=== PATIENT | male | born 1955 | race Caucasian/White ===

== ENCOUNTER 2025-07-19 22:52 | Inpatient (IN) | payer BC, SELFPAY ==
[2025-07-19 16:29] VITALS: BP 115/78
[2025-07-19 16:59] LABS: Hematocrit 41.9 % (39.0-52.0); Hemoglobin 14.5 g/dL (13.0-18.0); Mean Corp Hgb Conc. 34.6 g/dL (33.0-37.0); Mean Corpuscular Volume 85.7 fL (80.0-94.0); Nucleated Red Blood Cells % 0 % (-); Platelet Count 185 10^3/uL (130-400); Red Cell Dist. Width 13.7 % (11.5-14.5)
[2025-07-19 17:19] LABS: ALT (SGPT) 24 U/L (0-50); AST (SGOT) 31 U/L (17-59); Albumin 3.8 g/dl (3.5-5.0); Alkaline Phosphatase 71 U/L (38-126); Blood Urea Nitrogen 21 mg/dl (9-20); Calcium 8.5 mg/dl (8.4-10.2); Carbon Dioxide 20 mmol/L (22-30); Chloride 100 mmol/L (98-107); Glucose 105 mg/dl (70-99); Potassium 4.0 mmol/L (3.5-5.1); Sodium 128 mmol/L (135-145); Total Protein 7.1 g/dl (6.3-8.2); eGFR > 60.00
--- NOTE | 2025-07-19 19:21 | ED.GENMED ---
History of Present Illness
<Margaret Hanson PA-C - Last Filed: 07/20/25 04:55>
General
Chief Complaint: Skin Problem
Source: patient
Exam Limitations: none
Time Seen by Provider: 07/19/25 19:19
Nursing documentation reviewed up to this point in time: agreed with
History of Present Illness
History of Present Illness:
69-year-old male with a past medical history of HIV, skin cancer status post lymph node dissection on the left, presents to the ER today with concerns of left elbow swelling and pain with redness starting 3 days ago. He reports that this happened
before and it caused him to develop sepsis. It started with pain in the arm and rapidly progressed to redness down to his hand and across his back. He felt like he had a fever at home but does not recall the exact temperature. He denies any
nausea or vomiting. He denies any coughing or upper respiratory symptoms. He denies any dizziness or lightheadedness, denies any trauma to the area.
Review of Systems
<Margaret Hanson PA-C - Last Filed: 07/20/25 04:55>
Review of Systems
All Other Systems: ROS reviewed and negative except as documented in HPI and ROS
Phy Exam
<Margaret Hanson PA-C - Last Filed: 07/20/25 04:55>
Physical Exam
Physical Exam:
General: Patient is well appearing and in no acute distress; non-toxic
Skin: left upper extremity and left upper back warm and erythematous to the touch
Head: Normocephalic, atraumatic
Eyes: Sclera non-icteric. EOMs intact.
Cardiac: Regular rate and rhythm, no murmurs
Peripheral Vascular: 2+ radial and ulnar pulses on the left
Pulm: Normal respiratory effort, no wheezes, rales, or rhonchi
Abdomen: No abdominal tenderness to palpation
Musculoskeletal: Diffuse tenderness along the left upper extremity
Neuro: CN II-XII intact, no focal neurologic deficits.
Psychiatric: Appropriate mood and affect.
Course
<Margaret Hanson PA-C - Last Filed: 07/20/25 04:55>
Orders/Labs/Results
Orders:
Orders
07/19/25 16:31
Electrocardiogram (*1) Urgent
Reason for Study: Other
Other Reason for Exam: Possible Sepsis
Cardiac Monitoring- Treatment ONCE
EKG- Treatment ONCE
IV Insert/Care/Rem.- Treatment PRN
Straight cath- Treatment ONCE
07/19/25 16:46
C-Reactive Protein Urgent
Comment: ADD ON
Complete Blood Count/With Diff Urgent
Comprehensive Metabolic Panel Urgent
Erythrocyte Sed Rate Urgent
Comment: ADD ON
Lactic Acid Q4H
Comment: ON ICE, CANCEL 2ND ORDER IF FIRST LACTIC ACID LEVEL <2
Blood Culture Q20M
DAWSON Source: Blood/Venous
Specimen Description:
Comment: Urgent from separate sites. If patient screens positive for possible sepsis
07/19/25 19:29
US Periph Venous UPPER Ext LT Urgent
Comment:
Reason For Exam: left arm swelling and pain
07/19/25 20:29
Lactic Acid Q4H
Comment: ON ICE, CANCEL 2ND ORDER IF FIRST LACTIC ACID LEVEL <2
Blood Culture Q20M
DAWSON Source: Blood/Venous
Specimen Description:
Comment: Urgent from separate sites. If patient screens positive for possible sepsis
07/19/25 21:28
Morphine Sulfate 4 mg IV NOW STA
07/19/25 21:47
Urinalysis Reflex To Culture Urgent
Date Specimen was Collected: 07/19/25
Time Specimen was Collected: 16:31
Urine Microscopic Reflex Cult Urgent
07/19/25 22:08
Vancomycin [Vancocin] 2,000 mg 0.9% Sodium Chloride 500 ml [Nss] 500 ml IV NOW
07/19/25 22:32
Add On- LAB Stat
Tests Added?: ESR/CRP
Elbow, 3 view, Left [CR Elbow - Left Min 3 Views ] Stat
Comment:
Reason For Exam: eval for fracture/dislocation, joint space expansi
07/19/25 22:39
Admit/Transfer Patient As Directed
Co-Sign Provider:
Level of Care: Inpatient admission
Assign to:: Medical/Surgical
Physician / Group: susan
Diagnosis: Cellulitis of LUE
Reason for Hospitalization: cellulitis in LUE, immunocompromised
Expected length of stay greater than two midnights?: Yes
ELOS- Estimated Length of Stay in days: 2
I certify the patient meets the requirements for IP care: Yes
PRN Pain Medication Management As Directed
May give lesser potent ordered pain med per pt: Yes
preference::
Protocol:: Medication orders for pain may be administered in a
manner that supports deferring to patient preference
when the pt is:
- Requesting an ordered lesser potent pain medication.
Least to most potent pain medications are defined
as: acetaminophen < NSAID < tramadol < opioids
(morphine, oxycodone, hydromorphone).
- Requesting a lesser dose of the same medication IF
ORDERED.
- Requesting a less intrusive route of administration
if both routes are prescribed by the provider (PO <
IV).
07/19/25 22:40
Code Status As Directed
Resuscitation Status: Full Code
07/19/25 22:42
0.9% Sodium Chloride 1000 ml [Nss] 1,000 ml IV BOLUS
07/19/25 23:17
HYDROmorphone [Dilaudid] 0.5 mg IV Q4HPRN PRN
07/20/25 00:20
Acetaminophen [Tylenol] 650 mg PO Q4HPRN PRN
Bisacodyl [Dulcolax] 10 mg RECTAL [id number] PRN
Docusate W/Senna [Senokot-S] 1 tablet PO BIDPRN PRN
Ketorolac [Toradol] 15 mg IV Q6HPRN PRN
Ondansetron Injectable [Zofran] 4 mg IV Q6HPRN PRN
Oxycodone [Roxicodone] 5 mg PO Q4HPRN PRN
Polyethylene Glycol Powder [Miralax] 17 grams PO DAILYPRN PRN
VANCOMYCIN Pharmacy to Dose [VANCOCIN Pharmacy to Dose] 1 each Pharmacy To Prepare [Call Pharmacy To Prepare] 0 ml IV PER PROTOCOL
07/20/25 00:20
Activity As Directed
Activity Level: As Tolerated
Vital Signs As Directed
Frequency: Per unit guidelines
DX Deep Vein Thrombosis Video Routine
07/20/25 00:29
MRSA Screen Routine
DAWSON Source: Nose
Specimen Description:
07/20/25 06:00
Basic Metabolic Panel IN AM
Complete Blood Count/No Diff IN AM
Creatine Phosphokinase IN AM
Magnesium IN AM
07/20/25 08:00
browudm-drg-qeghz-tenofo disop [Stribild] 1 tablet PO DAILY
07/20/25 Dinner
Regular
At Your Request: Full Participation
Does patient need a safe tray?: No
07/20/25 18:00
Enoxaparin Sodium [Lovenox] 40 mg SC QPM
Abnormal Lab Results
07/19/25 07/19/25
16:46 21:47
WBC 11.0 H 10^3/uL
(4.8-10.8)
Abs Immat Gran (auto) 0.1 H 10^3/uL
(0-0.05)
Absolute Neuts (auto) 8.9 H 10^3/uL
(1.4-6.5)
Absolute Monos (auto) 0.7 H 10^3/uL
(0.1-0.6)
Immature Gran % 0.6 H %
(0-0.5)
Neutrophils % 81.1 H %
(42.2-75.2)
Lymphocytes % 11.4 L %
(20.5-51.1)
Sodium 128 L mmol/L
(135-145)
Carbon Dioxide 20 L mmol/L
(22-30)
BUN 21 H mg/dl
(9-20)
Glucose 105 H mg/dl
(70-99)
C-Reactive Protein 225.70 H mg/L
(0.0-10.00)
Ur Occult Blood Reflex 2+ A
(Negative)
Urine RBC 3-6 A /HPF
(0-2)
Urine Bacteria (Reflex) Few A
(Negative)
Urine Albumin (Reflex) 2+ A
(Neg - Trace)
07/19/25 16:46
07/19/25 16:46
Vital Signs
Initial and Last Documented VS:
Initial Vital Signs
Temp Pulse Resp BP Pulse Ox
98.2 F 98 15 115/78 98
07/19/25 16:29 07/19/25 16:29 07/19/25 16:29 07/19/25 16:29 07/19/25 16:29
Last Documented Vital Signs
Temp Pulse Resp BP Pulse Ox
97.3 F 81 16 123/72 97
07/19/25 23:45 07/19/25 23:45 07/19/25 23:45 07/19/25 23:45 07/19/25 23:45
<Barby Cha MD - Last Filed: 07/19/25 22:10>
Orders/Labs/Results
Orders:
Orders
07/19/25 16:31
Electrocardiogram (*1) Urgent
Reason for Study: Other
Other Reason for Exam: Possible Sepsis
Cardiac Monitoring- Treatment ONCE
EKG- Treatment ONCE
IV Insert/Care/Rem.- Treatment PRN
Straight cath- Treatment ONCE
07/19/25 16:46
C-Reactive Protein Urgent
Comment: ADD ON
Complete Blood Count/With Diff Urgent
Comprehensive Metabolic Panel Urgent
Erythrocyte Sed Rate Urgent
Comment: ADD ON
Lactic Acid Q4H
Comment: ON ICE, CANCEL 2ND ORDER IF FIRST LACTIC ACID LEVEL <2
Blood Culture Q20M
DAWSON Source: Blood/Venous
Specimen Description:
Comment: Urgent from separate sites. If patient screens positive for possible sepsis
07/19/25 19:29
US Periph Venous UPPER Ext LT Urgent
Comment:
Reason For Exam: left arm swelling and pain
07/19/25 20:29
Lactic Acid Q4H
Comment: ON ICE, CANCEL 2ND ORDER IF FIRST LACTIC ACID LEVEL <2
Blood Culture Q20M
DAWSON Source: Blood/Venous
Specimen Description:
Comment: Urgent from separate sites. If patient screens positive for possible sepsis
07/19/25 21:28
Morphine Sulfate 4 mg IV NOW STA
07/19/25 21:47
Urinalysis Reflex To Culture Urgent
Date Specimen was Collected: 07/19/25
Time Specimen was Collected: 16:31
Urine Microscopic Reflex Cult Urgent
07/19/25 22:08
Vancomycin [Vancocin] 2,000 mg 0.9% Sodium Chloride 500 ml [Nss] 500 ml IV NOW
07/19/25 22:32
Add On- LAB Stat
Tests Added?: ESR/CRP
Elbow, 3 view, Left [CR Elbow - Left Min 3 Views ] Stat
Comment:
Reason For Exam: eval for fracture/dislocation, joint space expansi
07/19/25 22:39
Admit/Transfer Patient As Directed
Co-Sign Provider:
Level of Care: Inpatient admission
Assign to:: Medical/Surgical
Physician / Group: susan
Diagnosis: Cellulitis of LUE
Reason for Hospitalization: cellulitis in LUE, immunocompromised
Expected length of stay greater than two midnights?: Yes
ELOS- Estimated Length of Stay in days: 2
I certify the patient meets the requirements for IP care: Yes
PRN Pain Medication Management As Directed
May give lesser potent ordered pain med per pt: Yes
preference::
Protocol:: Medication orders for pain may be administered in a
manner that supports deferring to patient preference
when the pt is:
- Requesting an ordered lesser potent pain medication.
Least to most potent pain medications are defined
as: acetaminophen < NSAID < tramadol < opioids
(morphine, oxycodone, hydromorphone).
- Requesting a lesser dose of the same medication IF
ORDERED.
- Requesting a less intrusive route of administration
if both routes are prescribed by the provider (PO <
IV).
07/19/25 22:40
Code Status As Directed
Resuscitation Status: Full Code
07/19/25 22:42
0.9% Sodium Chloride 1000 ml [Nss] 1,000 ml IV BOLUS
07/19/25 23:17
HYDROmorphone [Dilaudid] 0.5 mg IV Q4HPRN PRN
07/20/25 00:20
Acetaminophen [Tylenol] 650 mg PO Q4HPRN PRN
Bisacodyl [Dulcolax] 10 mg RECTAL [id number] PRN
Docusate W/Senna [Senokot-S] 1 tablet PO BIDPRN PRN
Ketorolac [Toradol] 15 mg IV Q6HPRN PRN
Ondansetron Injectable [Zofran] 4 mg IV Q6HPRN PRN
Oxycodone [Roxicodone] 5 mg PO Q4HPRN PRN
Polyethylene Glycol Powder [Miralax] 17 grams PO DAILYPRN PRN
VANCOMYCIN Pharmacy to Dose [VANCOCIN Pharmacy to Dose] 1 each Pharmacy To Prepare [Call Pharmacy To Prepare] 0 ml IV PER PROTOCOL
07/20/25 00:20
Activity As Directed
Activity Level: As Tolerated
Vital Signs As Directed
Frequency: Per unit guidelines
DX Deep Vein Thrombosis Video Routine
07/20/25 00:29
MRSA Screen Routine
DAWSON Source: Nose
Specimen Description:
07/20/25 06:00
Basic Metabolic Panel IN AM
Complete Blood Count/No Diff IN AM
Creatine Phosphokinase IN AM
Magnesium IN AM
07/20/25 08:00
fwhtaze-vza-pbpuk-tenofo disop [Stribild] 1 tablet PO DAILY
07/20/25 Dinner
Regular
At Your Request: Full Participation
Does patient need a safe tray?: No
07/20/25 18:00
Enoxaparin Sodium [Lovenox] 40 mg SC QPM
Abnormal Lab Results
07/19/25 07/19/25
16:46 21:47
WBC 11.0 H 10^3/uL
(4.8-10.8)
Abs Immat Gran (auto) 0.1 H 10^3/uL
(0-0.05)
Absolute Neuts (auto) 8.9 H 10^3/uL
(1.4-6.5)
Absolute Monos (auto) 0.7 H 10^3/uL
(0.1-0.6)
Immature Gran % 0.6 H %
(0-0.5)
Neutrophils % 81.1 H %
(42.2-75.2)
Lymphocytes % 11.4 L %
(20.5-51.1)
Sodium 128 L mmol/L
(135-145)
Carbon Dioxide 20 L mmol/L
(22-30)
BUN 21 H mg/dl
(9-20)
Glucose 105 H mg/dl
(70-99)
C-Reactive Protein 225.70 H mg/L
(0.0-10.00)
Ur Occult Blood Reflex 2+ A
(Negative)
Urine RBC 3-6 A /HPF
(0-2)
Urine Bacteria (Reflex) Few A
(Negative)
Urine Albumin (Reflex) 2+ A
(Neg - Trace)
07/19/25 16:46
07/19/25 16:46
Vital Signs
Initial and Last Documented VS:
Initial Vital Signs
Temp Pulse Resp BP Pulse Ox
98.2 F 98 15 115/78 98
07/19/25 16:29 07/19/25 16:29 07/19/25 16:29 07/19/25 16:29 07/19/25 16:29
Last Documented Vital Signs
Temp Pulse Resp BP Pulse Ox
97.3 F 81 16 123/72 97
07/19/25 23:45 07/19/25 23:45 07/19/25 23:45 07/19/25 23:45 07/19/25 23:45
Karilt;Margaret Hanson PA-C - Last Filed: 07/20/25 04:55>
MDM/Problems Addressed
Differential Diagnosis Includes:
ddx include cellulitis, dvt, erysipelas
MDM/Problems Addressed:
69-year-old male with a past medical history of HIV, skin cancer status post lymph node dissection on the left, presents to the ER today with concerns of left elbow swelling and pain with redness starting 3 days ago. History and physical exam
consistent with cellulitis. Reviewed case with ED attending. Will start vancomycin. Blood culture sent off. Ultrasound is negative for DVT.
Chronic conditions affecting care:
hiv
<Margaret Hanson PA-C - Last Filed: 07/20/25 04:55>
*Pulse Oximetry
SaO2: 98
Oxygen Mode of Delivery: Room air
Patient hypoxic: no
*Critical Care Note
Total Time (30-74mins, 75-104mins- exclusive of procedures): Not Applicable
Data Reviewed
Review of Other/Old Records Reveals: Records (no prior ER records to review, no discharge summary)
Source: patient and records
ED Attending Note
<Margaret Hanson PA-C - Last Filed: 07/20/25 04:55>
-
Portions of this chart may have been created with voice recognition software.� Occasional wrong word or��sound alike� substitutions may have occurred due to the inherent limitations of voice recognition software.
<Barby Cha MD - Last Filed: 07/19/25 22:10>
ED Attending Note
Patient seen and examined by attending physician: Yes
I performed the substantive portion of visit, reviewed & personally made and approve the management plan that is documented in note by myself or GINNY.: Yes
ED Attending Note:
Patient appears well nontoxic. Patient has diffuse swelling and erythema of left upper extremity extending from left upper humerus down towards left elbow and left wrist. Strong pulses in left upper extremity
Discharge Plan
Departure
Patient Disposition: Admit
Date of Disposition: 07/19/25
Time of Disposition: 22:10
Admit to: Med/Surg
Presentation/result/management discussed w/ accepting MD/DO: Hospitalist
Patient with high blood pressure during this ER visit?: No
Condition: Fair
Discharge Problem:
Cellulitis
Interventions
Interventions:
*General Assessment Last Done: 07/19/25 20:15
*Neglect/Abuse Screening Last Done: 07/19/25 16:29
*ED COVID-19 Vaccine History Last Done: 07/19/25 16:29
*ED Influenza Vaccine History Last Done: 07/19/25 16:29
[facility] Risk Assessment Tool Last Done: 07/19/25 20:10
*Risk Screen - Suicide (C-SSRS) Last Done: 07/19/25 16:29
*Nursing Disposition Last Done: 07/20/25 00:24
Discharge Date and Time
Discharge Date/Time: 07/20/25 00:25
[2025-07-19 20:08] VITALS: BMI 28.4
[2025-07-19 20:11] VITALS: BP 133/76
[2025-07-19] MEDS: MORPHINE SULFATE 4 MG IV (21:44)
[2025-07-19 22:02] LABS: Urine Character Clear (Clear)
[2025-07-19 22:21] LABS: Urine Squamous Cell 21-25 /LPF (Few)
--- NOTE | 2025-07-19 22:33 | HPS.HSE ---
Family Physician
-
Family Physician: Mateus Garcia
Chief Complaint
-
Left hand pain and swelling
History of Present Illness
69-year-old male who has past medical history significant for HIV on ART, history of skin melanoma status post excision and left upper extremity lymph node excision with residual chronic left upper extremity swelling presented to the emergency
department after 2 days of worsening pain and swelling in his left lower extremity.
Patient reports acute onset of symptoms about 2 days ago. He usually lives in [place] and is visiting family for the holiday. He states there was no trauma. He denies any insect bite. He denies any animal bite or scratch. No measured fevers at
home. Denies having chills. He has no prior such episodes. Denies any recent antibiotic use.
In the emergency department he was afebrile, blood pressure was 135/76 with a pulse rate of 93 and oxygen saturation of 100% on room air. Ultrasound of the left lower extremity is negative for DVT.
He has a white count of 11, hemoglobin and platelets were normal. Lactic acid was normal. Sodium was 128 with the rest of the electrolytes were mostly unremarkable.
Medical History
Past Medical History
Past Medical History: Reports Other (HIV on ART)
Past Surgical History: Reports Appendectomy and Other (Left upper extremity lymph node dissection)
Social History
Tobacco: Non-smoker
Alcohol: None
Drug: None
Family History
Family History: Not pertinent
Allergies / Home Medications
Allergies reflects when Allergies were last updated in [facility].
Home Medications with original date entered in [facility]
Allergy/Medication List:
Allergies
Allergy/AdvReac Type Severity Reaction Status Date / Time
NKA - No Known Allergies Allergy Uncoded 11/18/07 19:55
Home Medications
elviteg 150 mg-cob 150 mg-emtricit 200 mg-tenofo disopro 300 mg tablet (Stribild) 1 tab PO DAILY 07/19/25
Review of Systems
-
Constitutional: Reports No Symptoms
EENT: Reports No Symptoms
Respiratory: Reports No Symptoms
Cardiac: Reports No Symptoms
Abdomen/GI: Reports No Symptoms
: Reports No Symptoms
Musculoskeletal: Reports Joint Pain, Joint Swelling and Edema
Skin: Reports No Symptoms
Neurological: Reports No Symptoms
Endocrine: Reports No Symptoms
Hematologic/Lymphatic: Reports No Symptoms
Psych: Reports No Symptoms
Physical Exam
Vital Signs
Vital Signs
Temp Pulse Resp BP Pulse Ox
98.3 F 93 19 133/76 100
07/19/25 21:00 07/19/25 22:00 07/19/25 22:00 07/19/25 20:11 07/19/25 22:00
Physical Exam
General: Well Developed, Well Nourished and No Apparent Distress
HEENT: NormoCephalic, Moist mucous membranes and Atraumatic
Respiratory: Clear
Cardiac: S1/S2 and Regular Rhythm; No Murmur or Rub
GI: Soft, Non Tender, Non Distended and Normal Bowel Sounds; No Organomegaly
Rectal: Deferred by Provider
Musculoskeletal: No Clubbing, No Cyanosis, Edema, Left Upper Extremity, No Edema and Other (Exquisite tenderness on the dorsal and antecubital fossa of the left elbow, decreased range of motion although they can bend the elbow to greater than 90
degrees and also extended fully, no obvious effusion on examination but patient will not allow full palpation due to exquisite tenderness.)
Skin: No Rash
Neuro: AO x 3 and Nonfocal/grossly intact
Psych: Calm
Laboratory Results
-
07/19/25 16:46
07/19/25 16:46
Laboratory Results
Lactic Acid 1.0 mmol/L (0.7-2.0) 07/19/25 20:29
Total Bilirubin 1.0 mg/dl (0.2-1.3) 07/19/25 16:46
AST 31 U/L (17-59) 07/19/25 16:46
ALT 24 U/L (0-50) 07/19/25 16:46
Alkaline Phosphatase 71 U/L (38-126) 07/19/25 16:46
Data Reviewed
-
Ultrasound: Report Reviewed by me
Lab Data: Labs Reviewed by me
Impression/Plan
-
IMPRESSION:
39-year-old with history of HIV on ART who presents to emergency department with swelling and tenderness of the left upper extremity most notable around the elbow. There is some erythema. The swelling is chronic secondary to lymphedema. He is
afebrile but does have leukocytosis, high sodium of 128, lactic acid is negative.
PLAN:
Left upper extremity cellulitis/inflammatory arthritis
� Blood culture sent
� Check MRSA swab
� ESR/CRP
� Check allopurinol
� X-ray of the elbow
� If ESR and CRP are negative and x-rays without any findings�will continue with IV vancomycin
� If ESR and CRP are positive we will continue with vancomycin and add ceftriaxone plus consult to orthopedic
� Pain control
� Keep arm elevated
� Continue Stribild, additional ART to be determined
DVT prophylaxis�Lovenox subcu
CODE STATUS�full code
[2025-07-19] MEDS: VANCOCIN 540 MG IV (22:35)
[2025-07-19 23:30] VITALS: BP 135/72
[2025-07-19 23:45] VITALS: BP 123/72
[2025-07-19] MEDS: DILAUDID 0.5 MG IV (23:58)
--- NOTE | 2025-07-20 | PTCARENOTE ---
Pt arrived to floor via stretcher and ambulated to bed with a steady gait. Pt oriented to room, arm elevated of pillows, call foster within reach, plan of care discussed. Will review chart and continue to monitor.
[2025-07-20] MEDS: NSS 1000 IV (00:02)
[2025-07-20] MEDS: DILAUDID 0.5 MG IV (05:57)
[2025-07-20 07:40] VITALS: BP 106/62
[2025-07-20 08:41] LABS: Hematocrit 38.1 % (39.0-52.0); Hemoglobin 13.2 g/dL (13.0-18.0); Mean Corp Hgb Conc. 34.6 g/dL (33.0-37.0); Mean Corpuscular Volume 87.4 fL (80.0-94.0); Platelet Count 159 10^3/uL (130-400); Red Cell Dist. Width 13.7 % (11.5-14.5)
[2025-07-20 08:50] LABS: Blood Urea Nitrogen 19 mg/dl (9-20); Calcium 7.8 mg/dl (8.4-10.2); Carbon Dioxide 24 mmol/L (22-30); Chloride 105 mmol/L (98-107); Estimated Creatinine Clearance 68 ml/min; Glucose 104 mg/dl (70-99); Magnesium 2.1 mg/dl (1.6-2.3); Potassium 4.1 mmol/L (3.5-5.1); Sodium 133 mmol/L (135-145); eGFR > 60.00
--- NOTE | 2025-07-20 09:33 | PTCARENOTE ---
Red, warm rash observed on ARIE back. Pt informed this RN that it is new and itchy. MD made aware, MD at bedside.
--- NOTE | 2025-07-20 09:54 | PHA.VAN.IN ---
Assessment
- Assessment
Renal Function: Unknown baseline
Maximum Temperature: 98.3
Minimum Temperature: 97.3
AUC Dosing Plan
- Dosing Variables
Dosing Weight (kg): 97.7
Dosing CrCl (ml/min): 68
Vd coefficient (L/kg): 0.7
- Empiric Dosing
Initial / Loading Dose: Vanc 2gm 07/19 2235
Maintenance Regimen: Vanc 1gm IV q12H Begin now.
Estimated AUC (mcg*h/mL): 495
Estimated Peak (mcg*h/mL): 28.2
Estimated Trough (mcg/ml): 14.5
Estimated Half Life (H): 11.4
- Monitoring
No levels ordered at this time: Consider levels after 07/21 1800 dose
Pharmacokinetics Vancomycin I
- -
Patient Age: 69
Patient Sex: Male
Vancomycin Day #: 1
Indication: Skin And Soft Tissue
Requesting Provider: Kenia
Height / Weight:
Height 6 ft 1 in
Actual Weight 97.7 kg
IBW in k.9
Adjusted BW in k
- Vital Signs / Lab Results
Temp Pulse Resp BP Pulse Ox
97.5 F 77 16 106/62 99
07/20/25 07:40 07/20/25 07:40 07/20/25 07:40 07/20/25 07:40 07/20/25 07:40
Lab Results - Hematology
07/19/25 07/20/25
16:46 08:10
WBC 11.0 H 7.2
Lab Results - Chemistry
07/19/25 07/20/25
16:46 08:10
BUN 21 H 19
Creatinine 1.3 1.2
Estimated Creat Clear 68
Albumin 3.8
07/19/25 07/19/25
16:46 20:29
Lactic Acid 1.2 1.0
Lab Results - Urine
07/19/25
21:47
Urine Nitrite (Reflex) Negative
Leukocyte Esterase Rfl Negative
Urine WBC (Reflex) 3-5
Ur Squamous Epith Cells 21-25
Urine Bacteria (Reflex) Few A
--- NOTE | 2025-07-20 10:35 | W.PN.HOSP.TC ---
Addendum entered and electronically signed by Yusuf Ruggiero MD 07/20/25 12:23:
Discussed with orthopedics. Left upper extremity cellulitis secondary to lymph node removal. X-ray of distal humerus fracture very subtle. Orthopedics recommended sling only for comfort. Outpatient follow-up
Original Note:
Today's Communication/Plan
-
Monitor vital signs
see plan
Continue with vancomycin
Orthopedics for splint and sling
If symptoms do not improve then will need CT
Assessment / Plan
Assessment / Plan
General: Well Developed, Well Nourished and No Apparent Distress
HEENT: NormoCephalic, Moist mucous membranes and Atraumatic
Respiratory: Clear
Cardiac: S1/S2 and Regular Rhythm; No Murmur or Rub
GI: Soft, Non Tender, Non Distended and Normal Bowel Sounds
Musculoskeletal: Edema, Left Upper Extremity, mild erythema
Neuro: AO x 3 and Nonfocal/grossly intact
Psych: Calm
Left upper extremity cellulitis
hx of cellulitis after lymph node removal for skin cancer
� Blood culture sent, pending
crp high
� X-ray of the elbow with nondisplaced,nonangulated hairline transverse supracondylar fracture of the distal humerus. deneis any trauma
Discussed with Dr. Bose from orthopedics, advised splint and sling and outpatient f/u
Continue with vancomycin
� Pain control
Symptoms appears to be improving, If does not improve then will need CT
Mild hyponatremia
Monitor
hx of HIV
� Continue Stribild
History of skin melanoma status post excision and left upper extremity lymph node excision
DVT prophylaxis�Lovenox subcu
CODE STATUS�full code
Anticipated Discharge: 24 - 48 hours
Subjective/Interval History
-
Date of Service: July 20, 2025
denies nausea
Objective Data
-
Labs:
Laboratory Results
07/20/25
08:10
WBC 7.2
Hgb 13.2
Hct 38.1 L
Plt Count 159
Sodium 133 L
Potassium 4.1
Chloride 105
Carbon Dioxide 24
BUN 19
Creatinine 1.2
Glucose 104 H
Calcium 7.8 L
Vital Signs:
Vital Signs
Temp Pulse Resp BP Pulse Ox
97.5 F 77 16 106/62 99
07/20/25 07:40 07/20/25 07:40 07/20/25 07:40 07/20/25 07:40 07/20/25 07:40
I&O
07/19/25 07/20/25 07/21/25
06:59 06:59 06:59
Output Total 300 / 300
Balance -300 / -300
--- NOTE | 2025-07-20 11:00 | PTCARENOTE ---
Partner, Garfield, at bedside requested update from physician. Pt unable to recall physician who was at bedside this AM and unable to recall plan of care discussed. made aware.
[2025-07-20] MEDS: VANCOCIN 200 IV ×2 (11:01→17:30)
--- NOTE | 2025-07-20 12:47 | CON.ORTHO ---
Consultation
-
Date/Time Consultation Requested: Jul 20
Date/Time Consultation Performed: Jul 20
Requesting Provider: Bahman
Performing Provider: Best Steel
Reason for Consultation: Left arm swelling, possible distal humerus fracture
Consultation - Orthopedics
History
History of Present Illness:
69 y/o male with PMH for HIV on ART, skin melanoma status post excision and left upper extremity lymph node excision with residual chronic left upper extremity swelling presented to the emergency department after 2 days of worsening pain, swelling,
and erythema in his left lower extremity. Reports acute onset of symptoms about 2 days ago. He usually lives in [place] and is visiting family for the holiday. He states there was no trauma. He denies insect or animal bite, or skin trauma. No
fevers or chills at home. He has no prior such episodes. Denies any recent antibiotic use. In the ED he was afebrile and VSS Ultrasound of the left lower extremity is negative for DVT. Xray left elbow reveals a subtle, questionable fracture of the
distal humerus. WBC 7.2. The rest of his labs were essentially unremarkable. He has been admitted to the Hospitalist team and has been started on IV Vanco. We have been requested with regards to his xray findings.
Past Medical History:
HIV on ART
Past Surgical History:
Appendectomy
Left upper extremity lymph node dissection
Social History:
Tobacco: Non-smoker
Alcohol: None
Drug: None
Family History:
Unremarkable
ROS:
12 point review negative except for those noted in the HPI
Allergies / Home Medications
Allergy/AdvReac Type Severity Reaction Status Date / Time
NKA - No Known Allergies Allergy Uncoded 11/18/07 19:55
�Medication �Instructions �Recorded
elviteg 150 mg-cob 150 mg-emtricit 1 tab PO DAILY Infection 07/19/25
200 mg-tenofo disopro 300 mg
tablet (Stribild)
Vital Signs / Lab Results
Temp Pulse Resp BP Pulse Ox
97.5 F 77 16 106/62 99
07/20/25 07:40 07/20/25 07:40 07/20/25 07:40 07/20/25 07:40 07/20/25 07:40
07/20/25 08:10
07/20/25 08:10
Assessment / Plan
PE: Afeb. LUE skin intact. Some mild (reported improvement) erythema generally of the LUE. Moderate edema from the shoulder to the forearm. Palpation of the elbow elbow and distal humerus really does not elicit .much pain. Although stiff from
swelling, global ROM of the elbow not really painful at all. DNVI LUE
Xrays: Questional, nondisplaced, transvere distal humerus fracture
Impression: LUE swelling/cellulitis. R/o distal humerus fracture
Impression:
At length with the patient bedside yields his understanding to the reason for our requested consult. He is a well muscled 69 y/o gentlemen with zero history of trauma. He has moderate swelling and mild, improving, erythema of his LUE (with recent
lymph node excision for skin CA). Xrays reveal subtle abnormality of his left distal humerus. Exam is not really concerning for fracture. I will request a sling for comfort. No lifting or WB. Continue IV ABX and management per the primary team. He
understands my concern for a fracture here is VERY low. We had discussed holding on a CT, but will be safe and request, given the xray finding and his history. Hopefully this excludes fracture and he can use the sling for comfort and wean as he
feels comfortable. Will await the CT and make further recs from there. Discussed with Dr. Ruggiero. Will follow.
[2025-07-20] MEDS: TORADOL 15 MG IV (13:04)
[2025-07-20 16:00] VITALS: BP 115/65
[2025-07-20] MEDS: LOVENOX 40 MG SC (17:30)
[2025-07-20] MEDS: TYLENOL 650 MG PO (17:30)
[2025-07-20 23:38] VITALS: BP 134/78
--- NOTE | 2025-07-21 06:02 | W.PN.UPDATE ---
Update Note
Progress Note Update
Patient just finished showering. Discussed with him at the bathroom door. Continues IV ABX for suspected cellulitis LUE (? from recent lymph node removal). Still with moderate edema of the LUE. Improved erythema. DNVI LUE. Left elbow exam remains
unchanged. CT negative for fracture, and subtle abnormality likely artifact/nutrient vessel. Sling for comfort only, but not needed. Edema/pain control. When medically optimized and D/c will follow-up upon returning home to [place]. Orthopaedics to sign
off. Please reengage as necessary.
[2025-07-21 06:07] LABS: Hematocrit 43.3 % (39.0-52.0); Hemoglobin 15.1 g/dL (13.0-18.0); Mean Corp Hgb Conc. 34.9 g/dL (33.0-37.0); Mean Corpuscular Volume 87.5 fL (80.0-94.0); Nucleated Red Blood Cells % 0 % (-); Platelet Count 218 10^3/uL (130-400); Red Cell Dist. Width 13.3 % (11.5-14.5)
[2025-07-21] MEDS: VANCOCIN 200 IV (06:21)
[2025-07-21 06:26] LABS: Blood Urea Nitrogen 21 mg/dl (9-20); Calcium 8.5 mg/dl (8.4-10.2); Carbon Dioxide 22 mmol/L (22-30); Chloride 108 mmol/L (98-107); Estimated Creatinine Clearance 74 ml/min; Glucose 95 mg/dl (70-99); Potassium 4.3 mmol/L (3.5-5.1); Sodium 136 mmol/L (135-145); eGFR > 60.00
[2025-07-21 08:01] VITALS: BP 135/70
--- NOTE | 2025-07-21 08:44 | PHA.VAN.FU ---
Vancomycin Assessment / Plan
- Assessment
Renal Function: Stable
WBC's are: WNL
In the past 24 hrs, patient has been: Afebrile
- Dosing Plan
Continue: vancomycin 1000 mg q12H
- Monitoring Plan
Peak Level: 12.26 @2100
Trough Level: 12.27 @0530
- Follow Up
Pharmacy will continue to follow.
Vancomycin Follow UP
- -
Patient Age: 69
Patient Sex: Male
Vancomycin Day #: 2
Indication: Skin And Soft Tissue
Requesting Provider: Kenia
Height / Weight:
Height 6 ft 1 in
Actual Weight 97.7 kg
IBW in k.9
Adjusted BW in k
- Vital Signs / Lab Results
Temp Pulse Resp BP Pulse Ox
97.5 F 69 17 135/70 98
07/21/25 08:01 07/21/25 08:01 07/21/25 08:01 07/21/25 08:01 07/21/25 08:01
Lab Results - Hematology
07/19/25 07/20/25 07/21/25
16:46 08:10 05:29
WBC 11.0 H 7.2 5.7
Lab Results - Chemistry
07/19/25 07/20/25 07/21/25
16:46 08:10 05:29
BUN 21 H 19 21 H
Creatinine 1.3 1.2 1.1
Estimated Creat Clear 68 74
Albumin 3.8
07/19/25 07/19/25
16:46 20:29
Lactic Acid 1.2 1.0
Microbiology Results
07/20/25 00:29 MRSA Screen - Final
Nose No Methicillin Resistant Staphylococcus aureus isolated.
07/19/25 20:29 Blood Culture - Preliminary
Blood/Venous No Growth in 24 hours- Final report to follow
07/19/25 16:46 Blood Culture - Preliminary
Blood/Venous No Growth in 24 hours- Final report to follow
[2025-07-21 12:35] VITALS: BP 146/92
--- NOTE | 2025-07-21 15:19 | W.DCSUMMARY ---
Discharge Summary
Discharge Data
Date of Admission: 07/19/25
Date of Discharge: 07/21/25
-
Pending Results: No
Hospital Course
69-year-old male who has past medical history significant for HIV on ART, history of skin melanoma status post excision and left upper extremity lymph node excision with residual chronic left upper extremity
Presented with 2-day history of left upper extremity pain and swelling unknown chronic left upper extremity swelling from lymph node resection for skin melanoma. There was some area of erythema therefore started on IV antibiotics with vancomycin.
MRSA negative. CRP negative. Evaluated by surgery for which the x-ray demonstrated questionable nondisplaced transverse distal humerus fracture. Orthopedic surgery CT upper extremity completed which did not demonstrate fracture. Therefore
orthopedic surgery recommended to keep arm in sling for comfort however not needed. Would keep arm�left arm and Tubigrip/Rambo wrap to prevent any further swelling and in sling which will also help prevent swelling. Will discharge home on 7-day
course of Keflex 500 mg 4 times daily. Will need outpatient PCP follow-up.
DVT UE
IMPRESSION:
No sonographic evidence for left upper extremity venous thrombosis.
Elbow Xray
FINDINGS/impression:
There is a nondisplaced, nonangulated hairline transverse supracondylar fracture of the distal humerus.
There is generalized soft tissue swelling and edema.
No joint effusion.
Proximal radius and ulna are intact.
UE CT
IMPRESSION:
No CT findings to confirm hairline supracondylar fracture of the distal humerus. Radiographic findings from the previous day are therefore artifactual. No other fracture. No dislocation.
Generalized soft tissue swelling and edema.
Seen and examined on day of discharge which was 07/21/2025
No new complaints. No acute overnight events. States that the left arm swelling has significantly improved. Asking if he would be going home today.
Admits to full range of motion from left arm. No pain. No erythema warmth or drainage.
NAD
Scleral Anicteric
MMM
No JVD
CTABL
RRR, S1/S2
Soft, NT, ND, BS+
Warm, Dry
AAOx3
Calm
More than 30 minutes spent in discharge including
Final examination of the patient
Summarizing hospital stay
Instructions for continuing care to all relevant caregivers
Preparation of discharge records, prescriptions, and referral forms
Total time spent (in minutes): 33mins
Discharge Plan
-
Patient Disposition: Home (Routine Discharge)
Discharge Diagnosis/Procedures: LUE nonpurulent cellulitis
Condition: Good
Diet: As tolerated
Activity: As tolerated
Activity Restrictions/Additional Instructions:
Presented with 2-day history of left upper extremity pain and swelling unknown chronic left upper extremity swelling from lymph node resection for skin melanoma. There was some area of erythema therefore started on IV antibiotics with vancomycin.
MRSA negative. CRP negative. Evaluated by surgery for which the x-ray demonstrated questionable nondisplaced transverse distal humerus fracture. Orthopedic surgery CT upper extremity completed which did not demonstrate fracture. Therefore
orthopedic surgery recommended to keep arm in sling for comfort however not needed. Would keep arm�left arm and Tubigrip/Rambo wrap to prevent any further swelling and in sling which will also help prevent swelling. Will discharge home on 7-day
course of Keflex 500 mg 4 times daily. Will need outpatient PCP follow-up.
DVT UE
IMPRESSION:
No sonographic evidence for left upper extremity venous thrombosis.
Elbow Xray
FINDINGS/impression:
There is a nondisplaced, nonangulated hairline transverse supracondylar fracture of the distal humerus.
There is generalized soft tissue swelling and edema.
No joint effusion.
Proximal radius and ulna are intact.
UE CT
IMPRESSION:
No CT findings to confirm hairline supracondylar fracture of the distal humerus. Radiographic findings from the previous day are therefore artifactual. No other fracture. No dislocation.
Generalized soft tissue swelling and edema.
Referrals:
Mateus Garcia MD [Family Provider, Infectious Diseases]
Prescriptions:
New
cephalexin 500 mg capsule
500 mg PO QID Qty: 28 0RF
Continued
Stribild [id number] mg Tablet
1 tab PO DAILY
Discharge Orders:
Discharge Patient (As Directed); Ordered 07/21/25
Ordered By: Eber Barrientos
Discharge Date and Time
Discharge Date/Time: 07/21/25 12:40
Print Language: TURKISH
--- NOTE | 2025-07-21 17:39 | CM ---
Pt visiting from [place] . Pt left before case advocate could speak with him.
== END 2025-07-21 12:40 | disposition home or self-care (01) | DRG 603 ==
LOC: 3 WEST ACU 22:52
PROVIDERS: Emergency Medicine; Internal Medicine; ADMITTING PHYSICIAN Internal Medicine; ATTENDING PHYSICIAN Hospitalist; CONSULT PHYSICIAN Orthopaedic Surgery; EMERGENCY PHYSICIAN Emergency Medicine; FAMILY PHYSICIAN Internal Medicine Infectious Disease
DX: L03.114 Cellulitis of left upper limb (principal); S42.415A Nondisplaced simple supracondylar fracture without intercondylar fracture of left humerus, initial encounter for closed fracture; E87.1 Hypo-osmolality and hyponatremia; Z21 Asymptomatic human immunodeficiency virus [HIV] infection status; I89.0 Lymphedema, not elsewhere classified; Z79.899 Other long term (current) drug therapy; X58.XXXA Exposure to other specified factors, initial encounter; Z85.820 Personal history of malignant melanoma of skin
CPT/HCPCS: 73080; 73200; 80048; 80053; 80306; 80307; 81003; 81015; 82550; 83605; 83735; 85025; 85027; 85652; 86140; 87040; 87070; 93005; 93971; 96365; 96366; 96375; 99285